=== PATIENT | female | born 1990 | race Caucasian/White ===

== ENCOUNTER 2018-06-06 14:49 | Outpatient (CLI) | payer OTHER ==
--- NOTE | 2018-06-06 16:41 | Ultrasound Report ---
Reason: TEST POSITIVE Procedure Date: 06/06/2018 Accession Number: [id number] / [id number] Procedure: US - OB First Trimester CPT Code: FULL RESULT: EXAM: FIRST TRIMESTER OBSTETRIC ULTRASOUND (Less than 11 weeks) EXAM DATE: 06/06/2018 04:01 PM. CLINICAL HISTORY: TEST POSITIVE. CONCERN FOR MISCARRIAGE. LMP: 04/23/2018. COMPARISONS: None. TECHNIQUE: Transabdominal and transvaginal ultrasound examination with static image documentation. CLINICAL DATES: EGA 6 weeks 2 days with MIGUEL 01/28/2019 based on LMP. ASSESSMENT: Gestational Sac: None visualized. Embryo: None visualized. Cardiac activity: None visualized. MATERNAL STRUCTURES: Uterus: Anteverted. Unremarkable. Cervix: Closed. Right Ovary/Adnexa: The ovary measures 3.9 x 1.2 x 2.0 cm, volume 4.7 cc. Unremarkable. Left Ovary/Adnexa: The ovary measures 1.8 x 2.7 x 1.3 cm, volume 3.3 cc. Unremarkable. Free Fluid: Trace amount, likely physiologic. Other: None. IMPRESSION: Normal pelvic ultrasound. of unknown location. RADIA The call report notification system was initiated by Dr. Manas Isidro at 16:34 hrs on 06/06/18. The above findings were discussed with JUVENCIO Ayala by Dr. Manas Isidro at 16:39 hrs on 06/06/18.
== END 2018-06-06 14:50 | disposition home or self-care (01) ==
LOC: DI 14:49
PROVIDERS: ATTEND Nurse Practitioner Obstetrics & Gynecology
DX: Z32.01 Encounter for pregnancy test, result positive (principal); O03.9 Complete or unspecified spontaneous abortion without complication
CPT/HCPCS: 36415; 76801; 76817; 84702

== ENCOUNTER 2018-06-08 10:31 | Outpatient (CLI) | payer OTHER | END 2018-06-08 10:32 | disposition home or self-care (01) | LOC: LAB 10:31 | PROVIDERS: ATTEND Nurse Practitioner Obstetrics & Gynecology | DX: O03.9 Complete or unspecified spontaneous abortion without complication (principal) | CPT/HCPCS: 36415; 84702 ==

== ENCOUNTER 2018-11-26 11:59 | Outpatient (CLI) | payer SELFPAY ==
--- NOTE | 2018-11-27 07:24 | Ultrasound Report ---
Reason: TEST POSITIVE Procedure Date: 11/26/2018 Accession Number: [id number] / [id number] Procedure: US - OB First Trimester CPT Code: FULL RESULT: EXAM: FIRST TRIMESTER OBSTETRIC ULTRASOUND (Less than 11 weeks) EXAM DATE: 11/26/2018 12:51 PM. CLINICAL HISTORY: TEST POSITIVE. LMP: 09/12/2018. COMPARISONS: OB FIRST TRIMESTER 06/06/2018 2:56 PM. TECHNIQUE: Transabdominal and transvaginal ultrasound examination with static image documentation. CLINICAL DATES: EGA 10 weeks 5 days with MIGUEL 06/19/2019 based on LMP . ASSESSMENT: Gestational Sac: Single intrauterine. Mean gestational sac diameter: 40.4 mm = 9 weeks 2 days. Embryo: CRL (crown-rump length) 34.2 mm = 10 weeks 0 days. Cardiac activity: 176 beats per minute. Yolk sac: 5 mm. Amniotic fluid: Not accurately assessed at this gestational age. Early placenta: Not visible at this gestational age. Other: No perigestational fluid collection demonstrated. MATERNAL STRUCTURES: Uterus: Anteverted. Unremarkable. Cervix: Closed. Right Ovary/Adnexa: The ovary measures 2.3 x 1.7 x 1.4 cm, volume 2.8 cc. Unremarkable. Left Ovary/Adnexa: The ovary measures 2.9 x 1.9 x 2.7 cm, volume 7.7 cc. Unremarkable. Free Fluid: None. Other: None. IMPRESSION: 1. Single viable intrauterine at EGA 10 weeks 0 days with MIGUEL 12 based on crown-rump length, which is concordant with clinical dates. RADIA
== END 2018-11-26 12:00 | disposition home or self-care (01) ==
LOC: DI 11:59
PROVIDERS: ATTEND Registered Nurse
DX: Z32.01 Encounter for pregnancy test, result positive (principal)
CPT/HCPCS: 76801

== ENCOUNTER 2018-12-05 08:00 | Outpatient (CLI) | payer OTHER ==
[2018-12-05 16:49] LABS: MUDS CUTOFF CONCENTRATIONS CUTOFF CONC BELOW:
[2018-12-05 17:52] LABS: AMPHETAMINE SCREEN,URINE NEGATIVE (NEGATIVE); BENZODIAZEPINES SCREEN, URINE NEGATIVE (NEGATIVE); COCAINE SCREEN URINE NEGATIVE (NEGATIVE); METHADONE SCREEN, URINE NEGATIVE (NEGATIVE); METHAMPHETAMINES SCREEN, URINE NEGATIVE (NEGATIVE); OPIATE SCREEN, URINE NEGATIVE (NEGATIVE); OXYCODONE SCREEN, URINE NEGATIVE (NEGATIVE); PROPOXYPHENE SCREEN, URINE NEGATIVE (NEGATIVE); TRICYCLIC ANTIDEPRESSANT,URINE NEGATIVE (NEGATIVE)
== END 2018-12-05 23:59 | disposition home or self-care (01) ==
LOC: LAB.R 08:00
PROVIDERS: ATTEND Nurse Practitioner Obstetrics & Gynecology
DX: Z36.89 Encounter for other specified antenatal screening (principal)
CPT/HCPCS: 80306; 87086

== ENCOUNTER 2018-12-05 11:48 | Outpatient (CLI) | payer OTHER ==
[2018-12-05 13:00] LABS: BASOPHILS % (AUTO) 0.7 %; EOSINOPHILS # (AUTO) 0.1 10^3/uL (0.0-0.7); EOSINOPHILS % (AUTO) 1.7 %; HGB - HEMOGLOBIN 12.8 g/dL (12.0-16.0); LYMPHOCYTES # (AUTO) 2.3 10^3/uL (1.5-3.5); MEAN CORPUSCULAR HEMOGLOBIN 28.8 pg (27.0-31.0); MEAN CORPUSCULAR HGB CONC 33.3 g/dL (32.0-36.0); MEAN CORPUSCULAR VOLUME 86.5 fL (81.0-99.0); MEAN PLATELET VOLUME 7.6 fL (7.9-10.8); MONOCYTES # (AUTO) 0.6 10^3/uL (0.0-1.0); MONOCYTES % (AUTO) 8.5 %; NEUTROPHILS # (AUTO) 3.7 10^3/uL (1.5-6.6); NEUTROPHILS % (AUTO) 55.1 %; PLT - PLATELET COUNT 267 10^3/uL (130-450); RED BLOOD COUNT 4.44 10^6/uL (4.20-5.40); RED CELL DISTRIBUTION WIDTH 13.4 % (12.0-15.0); WHITE BLOOD COUNT 6.7 x10^3/uL (4.8-10.8)
[2018-12-06 13:06] LABS: HIV AG/AB 4TH GEN NON-REACTIVE (NON-REACTIVE)
[2018-12-06 13:31] LABS: HEPATITIS C ANTIBODY NON-REACTIVE (NON-REACTIVE)
[2018-12-06 13:33] LABS: HEPATITIS B SURFACE ANTIGEN NON-REACTIVE (NON-REACTIVE)
== END 2018-12-05 11:49 | disposition home or self-care (01) ==
LOC: LAB 11:48
PROVIDERS: ATTEND Nurse Practitioner Obstetrics & Gynecology
DX: Z36.89 Encounter for other specified antenatal screening (principal)
CPT/HCPCS: 36415; 80306; 81599; 85025; 86592; 86762; 86803; 86850; 86900; 86901; 87086; 87340; 87389

== ENCOUNTER 2018-12-19 11:01 | Emergency (ER) | payer OTHER ==
[2018-12-19 11:07] VITALS: BP 127/78
--- NOTE | 2018-12-19 11:20 | ED Physician Documentation ---
PD HPI URI - Stated complaint Stated Complaint: SY/THROAT PX/14 WKS SENT BY OB - Chief complaint Chief Complaint: Heent - History obtained from History obtained from: Patient - History of Present Illness Timing - onset: How many days ago (3-4) Timing duration: Days (3-4) Timing details: Gradual onset Associated symptoms: Fever (low grade), Sinus pain (frontal and maxillary). No: Swollen nodes, Dry cough Worsened by: Position (frontal headache worse with leaning over.) Recently seen: Not recently seen. No: Clinic (she tried to make appt with her PCP, but they would not give appt due to symptoms of fever and headache and told her she "had to go to the ER to rule out meningitis".) Review of Systems Constitutional: reports: Fever Nose: reports: Congestion, Sinus pressure / pain. denies: Rhinorrhea / runny nose Throat: reports: Sore throat. denies: Swollen tonsils Respiratory: denies: Cough Skin: denies: Rash Neurologic: reports: Headache (frontal sinus area). denies: Altered mental status PD PAST MEDICAL HISTORY - Past Medical History Past Medical History: No Respiratory: None Endocrine/Autoimmune: None - Past Surgical History Past Surgical History: No - Present Medications Home Medications: Ambulatory Orders Medication Instructions Recorded Confirmed Cephalexin [Keflex] 500 mg PO Q6H #28 capsule 12/19/18 dexAMETHasone [Decadron] 4 mg PO DAILY #5 tablet 12/19/18 - Allergies Allergies/Adverse Reactions: Allergies Allergy/AdvReac Type Severity Reaction Status Date / Time No Known Drug Allergies Allergy Verified 12/19/18 11:07 - Social History Does the pt smoke?: No Smoking Status: Never smoker Does the pt drink ETOH?: No - Immunizations Immunizations are current?: Yes PD ED PE NORMAL - Vitals Vital signs reviewed: Yes - General General: Alert and oriented X 3, No acute distress, Well developed/nourished - HEENT HEENT: Ears normal, Moist mucous membranes, Pharynx benign, Other (frontal sinus area tender to percussion. ) - Neck Neck: Supple, no meningeal sign, Other (some anterior neck tenderness with mild adenopathy.) - Cardiac Cardiac: RRR, No murmur - Respiratory Respiratory: Clear bilaterally - Derm Derm: Normal color, Warm and dry - Neuro Neuro: Alert and oriented X 3, No motor deficit, Normal speech Results - Vitals Vitals: Vital Signs - 24 hr 12/19/18 11:04 Temperature 36.6 C Heart Rate 108 H Respiratory 16 Rate Blood Pressure 127/78 O2 Saturation 99 PD MEDICAL DECISION MAKING - ED course Complexity details: considered differential (clinically much too well looking to be concerned about meningitis/ sepsis. Will err on bacterial side treatment, given symptoms seeming bacterial. ), d/w patient Departure - Departure Disposition: 01 Home, Self Care Clinical Impression: Acute sinusitis Qualifiers: Sinusitis location: frontal Recurrence: non-recurrent Qualified Code(s): J01.10 - Acute frontal sinusitis, unspecified Condition: Stable Record reviewed to determine appropriate education?: Yes Instructions: ED Sinusitis Abx Tx Prescriptions: Cephalexin [Keflex] 500 mg PO Q6H #28 capsule dexAMETHasone [Decadron] 4 mg PO DAILY #5 tablet Comments: Stay well-hydrated. Use some saline nasal spray a few times a day to help clear the nasal passages and promote sinus drainage. You can use Tylenol as needed for fevers and pains. Decadron steroid anti-inflammatory daily for 5 days. Cephalexin antibiotic as directed for a week. It sounds like likely to be a sinus bacterial infection. You do not look sick enough to warrant further testing at this point. Recheck if not improved over the next several days. Discharge Date/Time: 12/19/18 12:08
[2018-12-19] MEDS ORDERED: cephALEXin 250 MG CAPSULE PO STA (11:41)
[2018-12-19] MEDS ORDERED: CHERRY SYRUP 10 ML UDC PO ONE (11:41)
[2018-12-19] MEDS ORDERED: DEXAMETHASONE 10 MG/ML VIAL PO STA (11:41)
== END 2018-12-19 12:08 | disposition home or self-care (01) ==
LOC: ED 11:01
DX: J01.10 Acute frontal sinusitis, unspecified (principal)
CPT/HCPCS: 99283; A9270

== ENCOUNTER 2019-03-20 11:44 | Outpatient (CLI) | payer OTHER ==
[2019-03-20 13:34] LABS: HGB - HEMOGLOBIN 10.9 g/dL (12.0-16.0); MEAN CORPUSCULAR HEMOGLOBIN 29.2 pg (27.0-31.0); MEAN CORPUSCULAR HGB CONC 32.8 g/dL (32.0-36.0); MEAN PLATELET VOLUME 9.8 fL (7.9-10.8); RED BLOOD COUNT 3.73 10^6/uL (4.20-5.40); RED CELL DISTRIBUTION WIDTH 13.3 % (12.0-15.0); WHITE BLOOD COUNT 8.6 x10^3/uL (4.8-10.8)
--- NOTE | 2019-03-20 15:55 | Ultrasound Report ---
Reason: SCREENING Procedure Date: 03/20/2019 Accession Number: [id number] / [id number] Procedure: US - OB F/U or Repeat CPT Code: FULL RESULT: EXAM: FOLLOW-UP OBSTETRICAL ULTRASOUND EXAM DATE: 03/20/2019 12:54 PM. CLINICAL HISTORY: Follow-up limited anatomic survey. COMPARISON: 01/30/2019 TECHNIQUE: Real-time sonographic evaluation of the fetus performed by the signal constructor. Multiple manufacturer representative static images were saved for review. DATING: Established EGA 27 weeks 0 days with MIGUEL 06/19/2019 based on LMP. EGA 27 weeks 5 days with MIGUEL 06/14/2019 based on prior ultrasound of 11/26/2018. EGA 26 weeks 5 days with MIGUEL 06/21/2019 based on the current ultrasound. GENERAL EVALUATION Akins . Cardiac activity: 139 bpm. movement: Present Presentation: Vertex Placenta: Posterior with fundal wrap position. Amniotic fluid: Normal. GIULIANO 16.2 cm. MVP 6.5 cm. BIOMETRY Bi-Parietal Diameter (BPD): 6.5 cm, 26 weeks 2 days Head Circumference (HC): 24.4 cm, 26 weeks 3 days Abdominal Circumference (AC): 23.8 cm, 28 weeks 1 day Femur Length (FL): 4.8 cm, 26 weeks 0 days Estimated Weight: 1026 g. ANATOMY profile and nasal bone well seen today and appear normal. MATERNAL STRUCTURES Cervix long and closed 4.6 cm. IMPRESSION: 1. Akins intrauterine with gestational age 27 weeks 0 days based on LMP. 2. Estimated weight is within expected limits for assigned dating. 3. Normal interval growth compared to 11/26/2018. 4. profile and nasal bone well seen today and no anomalies are identified. RADIA
== END 2019-03-20 11:45 | disposition home or self-care (01) ==
LOC: DI 11:44
PROVIDERS: ATTEND Nurse Practitioner Obstetrics & Gynecology
DX: Z36.89 Encounter for other specified antenatal screening (principal)
CPT/HCPCS: 36415; 76816; 82950; 85027; 86850

== ENCOUNTER 2019-06-18 19:22 | Inpatient (IN) | payer OTHER ==
[2019-06-18] MEDS ORDERED: ONDANSETRON 4 MG/2 ML VIAL IVP PRN (20:00)
[2019-06-18] MEDS ORDERED: SODIUM CHLORIDE FLUSH 0.9% 10 ML SYRINGE IVP PRN (20:00)
[2019-06-18 21:21] LABS: BASOPHILS % (AUTO) 0.4 %; EOSINOPHILS # (AUTO) 0.2 10^3/uL (0.0-0.7); EOSINOPHILS % (AUTO) 2.1 %; HGB - HEMOGLOBIN 10.9 g/dL (12.0-16.0); LYMPHOCYTES # (AUTO) 2.4 10^3/uL (1.5-3.5); LYMPHOCYTES % (AUTO) 29.3 %; MEAN CORPUSCULAR HEMOGLOBIN 26.9 pg (27.0-31.0); MEAN CORPUSCULAR HGB CONC 31.6 g/dL (32.0-36.0); MEAN CORPUSCULAR VOLUME 85.2 fL (81.0-99.0); MEAN PLATELET VOLUME 11.2 fL (7.9-10.8); MONOCYTES # (AUTO) 0.7 10^3/uL (0.0-1.0); MONOCYTES % (AUTO) 8.8 %; NEUTROPHILS # (AUTO) 4.9 10^3/uL (1.5-6.6); PLT - PLATELET COUNT 244 10^3/uL (130-450); RED BLOOD COUNT 4.05 10^6/uL (4.20-5.40); RED CELL DISTRIBUTION WIDTH 15.1 % (12.0-15.0); WHITE BLOOD COUNT 8.3 x10^3/uL (4.8-10.8)
--- NOTE | 2019-06-18 21:37 | HISTORY & PHYSICAL EXAMINATION ---
Admit History - Visit Reason Visit Reason: Membranes rupture - : 3 Parity: 1 Premature: 0 Ectopic: 0 : 1 Care: positive: [facility] Risk/History: positive: None Complications This : positive: None Smoking Status: Never smoker - Mother's Labs Mother's Blood Type: positive: A Mother's RH: positive: Positive GBS: positive: Group B Step Negative Rubella Status: positive: Immune Meds/Allgy - Home Medications Home Medications: Ambulatory Orders Medication Instructions Recorded Confirmed Cephalexin [Keflex] 500 mg PO Q6H #28 capsule 12/19/18 dexAMETHasone [Decadron] 4 mg PO DAILY #5 tablet 12/19/18 - Allergies Allergies/Adverse Reactions: Allergies Allergy/AdvReac Type Severity Reaction Status Date / Time No Known Drug Allergies Allergy Verified 12/19/18 11:07 Physical - Abdominal Exam Vital Signs: Temp Pulse Resp BP Pulse Ox 36.6 C 100 18 130/81 H 100 06/18/19 19:45 06/18/19 19:45 06/18/19 19:45 06/18/19 19:45 06/18/19 19:45 Contraction Frequency (min/apart): 3-8 Contraction Intensity: positive: Moderate Uterine Resting Tone: positive: Soft - Monitoring Heart Rate Baseline: 140 Strip Review: positive: Category I - Presentation Presentation: positive: Vertex - Vaginal Exam Membranes: positive: Membranes ruptured Dilation (in cm): 2 Effacement (%): 75 Station: positive: -1 Cervical Position: positive: Posterior - Speculum Exam Speculum Exam Performed: positive: No Findings: positive: Gross leak Plan for Labor - Plan For Labor I expect patient to be DC'd or transferred within 96 hours.: Yes Plan for Labor: HPI: This 28yo @ 39.6wks gestation presents to [facility] with c/o gross rupture of membranes at approximately 1900 this evening (06/18/2019). She states the fluid was a large gush and clear. She reports +FM. She denies vaginal bleeding and states her contractions have continued to increase gradually in frequency and intensity since SROM. Cervix was noted to be 2/75/-1, posterior, soft and vertex. She has continued to leak clear amniotic fluid since her arrival. She has been a patient of [facility] through the duration of her which has been uncomplicated. She was admitted to [facility] for augmentation of labor. OB History: G1: 02/18/14 female @ 38.6wks gestation, epidural, [id number] G2: SAB 2018 @ 6wks G3: current Dating criteria: LMP 09/12/2018 Initial ultrasound @ 10.0wks c/w LMP dating Serial exams - agree PMHx: unremarkable Surgical Hx: none Social Hx: Never smoker, no ETOH or IVDA Family Hx: Breast cancer - MGM Medications: PNV Allergies: Keflex labs: RPR non-reactive HIV neg A positive, antibody neg Rubella immune HIV neg Hep B neg; Hep C neg UTOX neg GC/CT neg x 2 1 hour GTT 137 GBS Negative Genetic testing: pt declined Immunizations: Tdap 04/03/2019 Ultrasounds: Initial ultrasound @ 10.0wks gestation c/w LMP dating FAS: 01/30/2019 WNL with the exception of poor visualization of profile and nasal bone, 3VC. Posterior placenta, no previa. Size c/w dating. 03/20/2019 completion WNL. Physical Exam: Normocephalic, atraumatic PERRLA Heart RRR w/o M/G/R Lungs CTAB Abdomen gravid, soft, nontender EFW 3400g SVE 2/75/-1, vertex Contractions palpate moderate every 2-6 minutes with soft resting tone Bilateral LE's no edema Assessment: 28yo @ 39.6wks gestation by LMP c/w 10.0wk U/S SROM x 3 hours GBS neg FHR Category I Plan: Intermittent monitoring x 2 hours. Repeat SVE 4 hours after SROM. If SVE unchanged, will give 50mcg BC misoprostol for cervical ripening. If SVE changed consider pitocin for augmentation with ti tration per protocol vs expectant management. Anticipate .
[2019-06-18] MEDS: miSOPROStoL 100 MCG TABLET BC SCH (21:41)
[2019-06-18] MEDS ORDERED: OXYTOCIN/DEXTROSE 5 % 30 UNIT/500 ML BAG IV SCH (23:45)
[2019-06-19] MEDS: LACTATED RINGERS 1,000 ML IV SCH ×4 (00:04→17:02)
[2019-06-19] MEDS ORDERED: fentaNYL 100 MCG/2 ML VIAL ONE (00:15)
[2019-06-19] MEDS ORDERED: ROPIVACAINE 0.2% 200 MG/100 ML BAG EP ONE (00:15)
[2019-06-19] MEDS ORDERED: ROPIVACAINE 0.2% PF 20 ML AMPULE ONE (00:15)
[2019-06-19] MEDS ORDERED: ePHEDrine 50 MG/ML VIAL IVP PRN (00:52)
[2019-06-19] MEDS ORDERED: ONDANSETRON 4 MG/2 ML VIAL IVP PRN (00:52)
[2019-06-19] MEDS ORDERED: diphenhydrAMINE INJ 50 MG/ML VIAL IVP PRN (00:52)
[2019-06-19] MEDS ORDERED: ROPIVACAINE 0.2% 200 MG/100 ML BAG EP PRN (00:52)
[2019-06-19] MEDS ORDERED: NALOXONE 0.4 MG/ML VIAL IVP PRN (00:52)
[2019-06-19] MEDS ORDERED: NALBUPHINE 10 MG/ML AMP IVP PRN (00:52)
[2019-06-19] MEDS ORDERED: METOCLOPRAMIDE 10 MG/2 ML VIAL IVP PRN (00:52)
[2019-06-19] MEDS ORDERED: LACTATED RINGERS 500 ML IV ONE (00:52)
--- NOTE | 2019-06-19 00:56 | ANESTHESIA ---
Pre-Anesthesia VS, & Labs - Diagnosis term labor, IUP - Procedure epidural placement Vital Signs: Temp Pulse Resp BP Pulse Ox 36.6 C 100 18 130/81 H 100 06/18/19 19:45 06/18/19 19:45 06/18/19 19:45 06/18/19 19:45 06/18/19 19:45 Height 5 ft 3.5 in Weight (kg) 70.398 kg Body Mass Index 20.3 - NPO Last Fluid Intake: t/o day - Is Patient ?: Yes - Lab Results Current Lab Results: Laboratory Tests 06/18/19 21:00: WBC 8.3, RBC 4.05 L, Hgb 10.9 L, Hct 34.5 L, MCV 85.2, MCH 26.9 L, MCHC 31.6 L, RDW 15.1 H, Plt Count 244, MPV 11.2 H, Neut # (Auto) 4.9, Lymph # (Auto) 2.4, Meagher # (Auto) 0.7, Eos # (Auto) 0.2, Baso # (Auto) 0.0, Absolute Nucleated RBC 0.00, Nucleated RBC % 0.0 Lab results reviewed: Yes Fish Bones: 06/18/19 21:00 Home Medications and Allergies Active Medications Diphenhydramine HCl (Benadryl Inj) 12.5 - 25 mg IVP Q6HR PRN PRN Reason: ITCHING Ephedrine Sulfate () 5 mg IVP Q5M PRN PRN Reason: For SBP<100;give until SBP>100 Lactated Ringer's (Lr) 1,000 mls @ 150 mls/hr IV .Q6H40M PAUL Last Admin: 06/19/19 00:04 Dose: 999 mls/hr OXYTOCIN/DEXTROSE 5 % (Pitocin/Dextrose 5%) 30 unit in 500 mls @ 1 mls/hr IV TITR PAUL; Protocol Lactated Ringer's (Lr) 500 mls @ 999 mls/hr IV ONCE ONE Stop: 06/19/19 01:22 Ropivacaine (Naropin 0.2%) 200 mg in 100 mls @ 0 mls/hr EP PRN PRN; Protocol PRN Reason: PAIN Metoclopramide HCl (Reglan Inj) 10 mg IVP Q6HR PRN PRN Reason: Nausea / Vomiting Misoprostol (Cytotec) 50 mcg BC Q4H PENDING SALE TO [facility] Last Admin: 06/18/19 21:41 Dose: Not Given Nalbuphine HCl (Nubain) 2.5 - 5 mg IVP Q4H PRN PRN Reason: ITCHING Naloxone HCl (Narcan) 0.1 mg IVP Q2M PRN PRN Reason: RR<8 Ondansetron HCl (Zofran Inj) 4 mg IVP Q4H PRN PRN Reason: Nausea / Vomiting Ondansetron HCl (Zofran Inj) 4 mg IVP Q6HR PRN PRN Reason: Nausea / Vomiting Sodium Chloride (Normal Saline Flush 0.9%) 10 ml IVP PRN PRN PRN Reason: NEEDED PER PROVIDER ORDERS Sodium Chloride (Normal Saline Flush 0.9%) 10 ml IVP 0100,0900,1700 PENDING SALE TO [facility] Allergies/Adverse Reactions: Allergies Allergy/AdvReac Type Severity Reaction Status Date / Time No Known Drug Allergies Allergy Verified 12/19/18 11:07 Anes History & Medical History - Anesthetic History Anesthesia Complications: reports: No previous complications Family history of Anesthesia Complications: Denies Family history of Malignant Hyperthermia: Denies - Medical History Pulmonary: reports: None Endocrine/Autoimmune: reports: None Smoking Status: Never smoker - Obstetrical History : 3 Parity: 1 Events: positive: None Complications: positive: None Exam General: Alert, Oriented x3, Cooperative Dental: WNL Mouth Openin Fingerbreadth Neck Mobility: Normal Mallampati classification: II Thyromental Distance: greater than 6 cm Respiratory: No respiratory distress Cardiovascular: Regular rate Mental/Cognitive Status: Alert/Oriented X3, Normal for patient Cognitive Status: Within normal limits Plan Anesthesia Type: Epidural Consent for Procedure(s) Verified and Reviewed: Yes Code Status: Attempt Resuscitation ASA classification: 2-Mild systemic disease Is this case an emergency?: No
--- NOTE | 2019-06-19 01:41 | CONSULTATION NOTE ---
Consultation Report: Call for low BPx2 and patient with nausea. Sensory level appreciated at T8. Ephedrine 10mg IV and increase in fluid rate. Pt states symptoms resolved, denies pain.
--- NOTE | 2019-06-19 02:17 | PROVIDER PROGRESS NOTE ---
Labor Progress Note - Uterine Monitoring Uterine Monitoring Mode: positive: External toco Contraction Frequency (min/apart): 4-6 Contraction Intensity: positive: Moderate to strong Uterine Resting Tone: positive: Soft - Monitoring Monitor Mode: positive: External ultrasound Heart Rate Baseline: 120 Heart Rate Variability: positive: Moderate (6-25 bmp) Accelerations: positive: Present, 15x15 Decelerations: positive: Late, Intermittent (<50% x20 min) Strip Review: positive: Category II - Vaginal Exam Dilation (in cm): 5 Effacement (%): 100 Station: -1 Cervical Position: Midposition - Labor Progress Note Labor Progress Note/Additional Text: S: Patient laying slightly upright with a slight left tilt and O2 mask on. She is feeling comfortable with her epidural. is supportive at the bedside. O: FHR baseline 120s, moderate variability, + accels. Difficultly tracing FHR wi th concern for prolonged, late deceleration with onset approximately 0121. Pitocin was shut off, patient was rotated, fluid bolus initiated, and O2 mask applied. FHR seemed to recover followed by another likely late deceleration with onset approximately 0141. FSE applied at 0146. FHR baseline 125, moderate variability, + accels, no decels since that time. Pt has experienced repeated episodes of hypotension immediately following placement of epidural. BP 64/28. 2 doses of ephedrine given. A: 28yo @ 40wks gestation by LMP c/w 10wk U/S Active labor GBS neg FHR currently Category I - overall reassuring Hypotension improving with fluid bolus, position changes, and ephedrine administration P: Continuous monitoring Hold Pitocin for 2 hours and repeat SVE - consider pitocin initiation if SVE unchanged and FHR remains Category I Reviewed plan of care with pt, and labor RN who are all in agreement and deny further questions or concerns at this time. Anticipate .
--- NOTE | 2019-06-19 02:41 | PROVIDER PROGRESS NOTE ---
Labor Progress Note - Uterine Monitoring Uterine Monitoring Mode: positive: External toco Contraction Frequency (min/apart): 4 Contraction Intensity: positive: Moderate to strong Uterine Resting Tone: positive: Soft - Monitoring Monitor Mode: positive: External ultrasound Heart Rate Baseline: 150 Heart Rate Variability: positive: Moderate (6-25 bmp) Accelerations: positive: Present, 15x15 Decelerations: positive: None Strip Review: positive: Category I
--- NOTE | 2019-06-19 03:05 | PROVIDER PROGRESS NOTE ---
Labor Progress Note - Uterine Monitoring Uterine Monitoring Mode: positive: External toco Contraction Frequency (min/apart): 3-5 Contraction Intensity: positive: Moderate to strong Uterine Resting Tone: positive: Soft - Monitoring Monitor Mode: positive: Spiral electrode Heart Rate Baseline: 160 Heart Rate Variability: positive: Moderate (6-25 bmp) Accelerations: positive: Present, 15x15 Decelerations: positive: None Strip Review: positive: Category I - Vaginal Exam Dilation (in cm): 7 Effacement (%): 100 Station: 1 Cervical Position: Midposition - Labor Progress Note Labor Progress Note/Additional Text: S: Laying comfortably on right side. Feeling more movement in her lower legs and is able to feel her abdomen more than she had with initial epidural placement. supportive at the bedside. O: FHR baseline 160, minimal - moderate variability, + accels, no decels IUPC placed secondary to difficulty tracing contractions. Contractions palpate strong every 3-5 minutes with soft resting tone. SVE 7/100/+1 A: 28yo @ 40.0wks gestation by LMP c/w 10.0wk U/S FHR Category I with intermittent periods of Category II - overall reassuring Active labor GBS neg P: Continuous monitoring Continue expectant management Continue to rotate in bed on peanut ball a minimum of q 1 hr Anticipate .
--- NOTE | 2019-06-19 06:31 | PROVIDER PROGRESS NOTE ---
Labor Progress Note - Uterine Monitoring Uterine Monitoring Mode: positive: External toco Contraction Frequency (min/apart): 3 Contraction Intensity: positive: Strong Uterine Resting Tone: positive: Soft - Monitoring Monitor Mode: positive: External ultrasound Heart Rate Baseline: 150 Heart Rate Variability: positive: Moderate (6-25 bmp) Accelerations: positive: Present, 15x15 Decelerations: positive: None Strip Review: positive: Category I - Vaginal Exam Dilation (in cm): 9 Effacement (%): 100 Station: 1 Cervical Position: Anterior - Labor Progress Note Labor Progress Note/Additional Text: S: Sitting in high fowlers position in bed and feeling more discomfort with contractions. supportive at the bedside. O: FHR basleine 150s, moderate variability, + accels, no decels SVE 9/100/+1 with more cervix noted to right anterior lip of cervix. Attempted pushing while holding back anterior lip without success. Pt repositioned to exaggerated right side lying position to continue to labor. Contractions palpate firm every 3 minutes with soft resting tone A: 28yo @ 40.0wks gestation by LMP c/w 10.0wk U/S Active labor FHR Category I GBS neg P: Reposition and continue to labor/expectant management. Repeat SVE in 1 hour or sooner PRN. Anticipate
[2019-06-19] MEDS: OXYTOCIN/DEXTROSE 5 % 30 UNIT/500 ML BAG IV PRN ×2 (08:47→10:20)
[2019-06-19] MEDS ORDERED: HYDROCORTISONE 1% CREAM 28 GM TUBE PR PRN (09:05)
[2019-06-19] MEDS ORDERED: WITCH HAZEL/GLYCERIN 1 PAD TOP PRN (09:05)
--- NOTE | 2019-06-19 09:05 | DELIVERY NOTE ---
Delivery Note - Labor Labor: positive: Spontaneous - Delivery Method Delivery Method: positive: Spontaneous vaginal delivery - Presentation Presentation: positive: Vertex, FRANK - right occiput anterior - Nuchal Cord Nuchal Cord: positive: None - Episiotomy Type Episiotomy Type: positive: None - Laceration Laceration: positive: None - : positive: Placed in direct skin contact with mother, Stimulated, Warmed [place] sex: positive: Male - Cord Cord: positive: 3 vessels - Placenta Placenta: positive: Intact, Spontaneous - Estimated Blood Loss Estimated Blood Loss (in cc): 200 - Post Delivery Events Post Delivery Events: positive: No post delivery events - Delivery Comments (Free Text/Narrative) Delivery Comments (Free Text/Narrative): Labor: This 28yo @ 40.0wks gestation by LMP c/w 10.0wk U/S presented on 06/18/2019 with SROM which was noted to be a moderate amount of clear fluid. Upon arrival cervix was 2/75/0, vertex. FHR pattern demonstrated Category I with intermittent periods of Category II - overall reassuring. Epidural placed per maternal request. Pitocin administered via IV @ 1 for less than 30 minutes at which time it was shut off due to late deceleration and hypotension with epidural placement. Normal labor course. The patient progressed to c/c/+2 at 0818. : Normal of viable male on 06/19/2019 @ 0847. No nuchal cord. The was stimulated, dried, and placed skin to skin. 's were 9/9 at 1 and 5 min respectively. The umbilical cord was allowed to stop pulsating at which time it was doubly clamped by CNM and cut by FOB. Pitocin administered via IV for hemostasis. Cord blood was obtained. Placenta delivered spontaneously and intact at 0851. 3VC. EBL 200mL. Fourth stage: Uterine fundus firm and there is no excessive bleeding. The perineum, vagina, and cervix were inspected and found to be intact. Skin to skin initiated. Family bonding well. Both mother and baby were left in stable condition.
[2019-06-19] MEDS: miSOPROStoL 100 MCG TABLET BC SCH ×3 (09:20→17:01)
[2019-06-19] MEDS: SODIUM CHLORIDE FLUSH 0.9% 10 ML SYRINGE IVP SCH ×2 (09:21→17:02)
[2019-06-19] MEDS: IBUPROFEN 800 MG TABLET PO SCH ×3 (09:37→22:45)
[2019-06-19] MEDS: ACETAMINOPHEN 500 MG TABLET PO SCH ×2 (09:37→18:06)
[2019-06-19] MEDS: CALCIUM CARBONATE CHEW 500 MG TABLET PO SCH ×2 (09:38→12:13)
[2019-06-19] MEDS: DOCUSATE SODIUM 100 MG CAPSULE PO SCH (22:46)
[2019-06-20] MEDS: ACETAMINOPHEN 500 MG TABLET PO SCH ×2 (01:59→10:17)
[2019-06-20] MEDS: IBUPROFEN 800 MG TABLET PO SCH ×2 (04:40→10:17)
[2019-06-20] MEDS: LACTATED RINGERS 1,000 ML IV SCH (07:50)
[2019-06-20] MEDS: CALCIUM CARBONATE CHEW 500 MG TABLET PO SCH (07:51)
[2019-06-20] MEDS: SODIUM CHLORIDE FLUSH 0.9% 10 ML SYRINGE IVP SCH (07:51)
--- NOTE | 2019-06-20 09:18 | Discharge Plan ---
Discharge Plan Problem Reviewed?: Yes Disposition: Home, Self Care Condition: Good Diet: Regular Activity Restrictions: No Restrictions Shower Restrictions: No Weight Bearing: Full Weight No Smoking: If you smoke, Please STOP! Call for help. Follow-up with: Marian Judge CNM, ARNP [Provider Admit Priv/Credential] -
--- NOTE | 2019-06-20 09:20 | PROVIDER PROGRESS NOTE ---
Subjective - Subjective Subjective: FINAL PROGRESS NOTE: S: Bonding well with baby. without difficulty. pain well controlled with oral medications. Bleeding decreased and is light. Excited to be able to go home today. supportive at the bedside. O: Heart RRR w/o M/G/R, lungs CTAB, abdomen soft and nontender with fundus firm at U-1, bilateral LE's no edema. A: 28yo -->P2 PPD#1 s/p TSVD of viable male infant P: Reviewed pp self care and warning s/sx and when to present Advised continuation of PNV while Advised OTC ibuprofen and tylenol for pain management PRN Return in 3 weeks for routine pp visit or sooner PRN. Pt and verbalized understanding and agree to above plan. They deny further questions or concerns at this time. Objective - Vital Signs/Intake & Output Vital Signs: Vital Signs x48h Temp Pulse Resp BP Pulse Ox 06/20/19 04:43 36.6 C 76 20 107/68 99 Intake & Output: Intake & Output 06/17/19 06/18/19 06/19/19 06/20/19 23:59 23:59 23:59 23:59 Intake Total 1931.000 Output Total 1600 Balance 331.000 - Lab Results Fish Bones: 06/18/19 21:00
[2019-06-20 09:31] VITALS: BP 108/61
--- NOTE | 2019-06-20 09:40 | DISCHARGE SUMMARY ---
Physician: MUNA Escalona DATE OF ADMISSION: 06/18/2019 DATE OF DISCHARGE: 06/20/2019 DIAGNOSES ON ADMISSION 1. A 28-year-old G3, P1-0-1-1 at 39.6 weeks gestation. 2. Spontaneous rupture of membranes. 3. Group B Streptococcus negative. DIAGNOSES ON DISCHARGE 1. A 28-year-old G2, P2-0-1-2 status post spontaneous vaginal delivery on 06/19/2019. 2. . 3. Normal recovery. HISTORY OF PRESENT ILLNESS: She is a patient of [facility] who presented on with complaints of spontaneous rupture of membranes, which was noted to be a moderate amount of c lear fluid. Cervix was 2 cm dilated, 75% effaced, 0 station, vertex position. She progressed to spo ntaneously deliver a viable male named Gold. Apgars were 9 and 9 at 1 and 5 minutes respectiv lay. The patient was noted to have an intact perineum. She has been doing well in her course. She is ambulating and tolerating a regular diet. She is urinating without difficulty and her lochia is normal. Her pain is well controlled with oral medications. She will be discharged home today on day #1 with instructions to continue he r vitamin while , and to take ibuprofen and Tylenol [id number] as needed for pain management. She intends to follow up with myself at [facility] in 3 weeks for routine visit. She has been given precautions to call if she has any worsening fevers , chills, abdominal pain, increased bleeding or foul-smelling vaginal lochia. TD: 06/20/2019 09:26
[2019-06-20] MEDS: DOCUSATE SODIUM 100 MG CAPSULE PO SCH (10:17)
--- NOTE | 2019-06-20 10:31 | Labor Flowsheet ---
Labor Flowsheet Datetime Report Generated by CPN: 06/20/2019 10:30 Datetime: 06/20/2019 09:28 VITAL SIGNS NBP Sys/Jocelin/Mean (mmHg): 108 : 61 : 73 Pulse: 91 LaborFlag: Labor Datetime: 06/19/2019 10:49 SpO2 (%): 98 Datetime: 06/19/2019 09:00 Temperature (C): 36.9 Datetime: 06/19/2019 08:47 MEDICATIONS Pitocin (milliunits): Started @ 999 Datetime: 06/19/2019 08:40 UTERINE ACTIVITY Monitor Mode: External Frequency (min): 2 Quality: Strong Duration (sec): 60-90 Pattern: Normal: <= 5 Contractions in 10 Minutes Resting Tone (Palpate): Relaxed ASSESSMENT A Monitor Mode: Internal Scalp Electrode FHR Baseline Rate : 130 Variability: Minimal - Undetectable to <=5 bpm Accelerations: None Decelerations: Variable Category: Category II Comments: scalp stim by provider PATIENT CARE Oxygen Method: Room Air STAGE 2 Pushing: Urge to Push Pushing Position: Pushing with Contractions Pushing Progress: Descent with Pushing; Perineal Bulging; Rectal Bulging; Caput Noted; Presenting P art Visible Datetime: 06/19/2019 08:30 I/O Interventions: Ice Chips Given Datetime: 06/19/2019 08:23 Patient Care Comments: provider straight cath Datetime: 06/19/2019 08:18 VAGINAL EXAM Dilatation (cm): 10.0 Effacement (%): 100 Station: 2 Exam by: A.Alfie CNM Datetime: 06/19/2019 08:15 Provider Notified (Name): A Alfie at bedside Datetime: 06/19/2019 08:02 Patient Position/Activity: Left Tilt; Semi-Fowlers Datetime: 06/19/2019 07:30 Respirations: 20 Temperature Route: Oral PAIN Pain Scale: 7 Pain Presence: Intermittent Pain Type: Contraction Pain Location: Abdomen; Back; Left Hip Pain Relief Measures: FURNACE KEEPER Use Pain Coping: Talking Through Contractions Datetime: 06/19/2019 06:30 Monitor Interventions for UA: [place] Adjusted Datetime: 06/19/2019 06:10 Contraction Comments: IUPC removed Datetime: 06/19/2019 06:08 Communication Comments: Marian Alfie at bedside Datetime: 06/19/2019 06:00 Notification Reason: Status Update Datetime: 06/19/2019 04:38 Pain Assessment Comments: pt denies any increased pain Datetime: 06/19/2019 04:37 Vaginal Bleeding: Normal Show Datetime: 06/19/2019 03:30 FHR Baseline Changes: Tachycardia Datetime: 06/19/2019 01:46 Monitor Interventions for FHR: FSE Applied Datetime: 06/19/2019 01:32 Vaginal Exam Comments: unchanged Datetime: 06/19/2019 01:30 MATERNAL ASSESSMENT Nausea/Vomiting: Present Magnesium/Antihypertensives: Ephedrine IV (mg) @ 10 Datetime: 06/19/2019 01:29 COMMUNICATION Communication: Call/Page Placed to Provider Datetime: 06/19/2019 01:03 Pitocin Checklist: At Least 1 Acceleration of 15 bpm x 15 Seconds in 30 Minutes or Adequate Variabi lity; No More than 1 Late Deceleration Occurred in Past 30 Minutes; No More than 2 Variable Decelerat ions > 60 Seconds in Duration and decreasing >60 bpm in 30 minutes; No More than 5 Uterine Contractio ns in 10 Minutes for any 20 Minute Interval; Uterus Palpates Soft between Contractions Datetime: 06/19/2019 01:00 Anesthesia Level Check: T4- Nipple Line Anesthesia Comments: Anesthesia provider aware of anesthesia level Datetime: 06/19/2019 00:47 Medication Comments: anesthesia Anesthesia Interventions Other: Ephedrine Datetime: 06/19/2019 00:39 Epidural Procedure: Loading Dose Datetime: 06/19/2019 00:27 Membranes Ruptured Date/Time: 06/19/2019 18:30 Membranes Rupture Method: Spontaneous Amniotic Fluid Color: Clear Amniotic Fluid Amount: Small Amniotic Fluid Odor: Normal Datetime: 06/19/2019 00:25 PROCEDURE TIME OUT Procedure Verify: Agreement on Procedure to be Done; Correct Patient Position Epidural Positioning: Sitting Datetime: 06/19/2019 00:22 ANESTHESIA Anesthesia Plans: Epidural Datetime: 06/18/2019 23:52 TEACHING Instructional Method: Verbal Plan of Care: Plan of Care Discussed Teaching Comments: Discussed provider plan for augmentation of labor with Pitocin. Patient desires epidural placement prior to initiation of pitocin. Datetime: 06/18/2019 20:25 Stage of : Labor
== END 2019-06-20 10:30 | disposition home or self-care (01) | DRG 807 ==
LOC: WFO 19:22 → FBP 19:24 → WFO 20:01 → FBP 20:01
PROVIDERS: ADMIT Nurse Practitioner Obstetrics & Gynecology; ATTEND Nurse Practitioner Obstetrics & Gynecology
PROC: 10E0XZZ Delivery of Products of Conception, External Approach (ICD-10-PCS; principal; 2019-06-18)
DX: O42.02 Full-term premature rupture of membranes, onset of labor within 24 hours of rupture (principal); Z37.0 Single live birth; O76 Abnormality in fetal heart rate and rhythm complicating labor and delivery; O75.89 Other specified complications of labor and delivery; R03.1 Nonspecific low blood-pressure reading; Z3A.40 40 weeks gestation of pregnancy
CPT/HCPCS: 85025; A9270; J7120; 99213

== ENCOUNTER 2023-06-07 10:30 | Outpatient (CLI) | payer OTHER ==
--- NOTE | 2023-06-07 17:32 | XRAY Report ---
PROCEDURE: Wrist 4 View LT INDICATIONS: PAIN IN LEFT WRIST TECHNIQUE: 4 views of the wrist were acquired. COMPARISON: None. FINDINGS: Bones: No fractures or dislocations. No suspicious bony lesions. Soft tissues: No suspicious soft tissue calcifications or masses. IMPRESSION: No acute bony abnormality. Reviewed by: Khai Burgess MD on 06/07/2023 5:31 PM [facility] Approved by: Khai Burgess MD on 06/07/2023 5:31 PM PST Station ID: [id number]
== END 2023-06-07 10:45 | disposition home or self-care (01) ==
LOC: DI.N 10:30
PROVIDERS: ATTEND Specialist
DX: M25.532 Pain in left wrist (principal)

== ENCOUNTER 2023-07-06 17:14 | Emergency (ER) | payer OTHER ==
[2023-07-06 17:36] VITALS: BP 105/65; O2SAT 98
[2023-07-06] MEDS ORDERED: BACITRACIN ZINC OINT 1 PACKET TOP STA (19:15)
--- NOTE | 2023-07-06 19:19 | ED Physician Documentation ---
PD HPI UPPER EXT INJURY - Stated complaint Stated Complaint: R HAND LAC - Chief complaint Chief Complaint: Laceration - History obtained from History obtained from: Patient - Additonal information Additional information: The patient comes to the ED with chief complaint of right palmar laceration while washing a knife. She states it happened just before she came here. She is right-hand dominant. No difficulty moving Her fingers since. No other complaints at this time. PD PAST MEDICAL HISTORY - Past Medical History Past Medical History: No Respiratory: None Endocrine/Autoimmune: None - Past Surgical History Past Surgical History: No - Present Medications Home Medications: Ambulatory Orders Medication Instructions Recorded Confirmed No Known Home Medications 07/06/23 07/06/23 - Allergies Allergies/Adverse Reactions: Allergies Allergy/AdvReac Type Severity Reaction Status Date / Time cephalexin [From Keflex] Allergy Rash Verified 07/06/23 17:27 - Social History Does the pt smoke?: No Smoking Status: Never smoker Does the pt drink ETOH?: No Does the pt have substance abuse?: No - Immunizations Immunizations are current?: Yes PD ED PE NORMAL - Vitals Vital signs reviewed: Yes - General General: Alert and oriented X 3, No acute distress, Well developed/nourished - HEENT HEENT: Atraumatic, PERRL, EOMI, Moist mucous membranes - Neck Neck: Supple, no meningeal sign - Derm Derm: Warm and dry, Other (2.75 cm linear laceration R palm. Superficial, just into subcutaneous fat.) - Extremities Extremities: No deformity - Neuro Neuro: Alert and oriented X 3 - Psych Psych: Normal mood, Normal affect Results - Vitals Vitals: Oxygen O2 Source Room air Procedures - Laceration (location) R palm Length in cm: 2.7 Wound type: Linear, Into subcut fat, Clean Neurovascular status: Sensory intact, Motor intact, Vascular intact Anesthesia: Lidocaine 1% Wound preparation: Hibiclens, Irrigated copiously NS, Wound explored, To the base Skin layer closure: Nylon, Interrupted, Size #-0 - enter number (5.0), Sutures - enter # (6) Other: Patient tolerated well, No complications, Neurovascular intact, Dressing applied, Tetanus UTD PD Medical Decision Making - ED course Complexity details: considered differential, d/w patient ED course: Wound repaired as above, and Bacitracin applied. Wound care discussed, as were timeline for suture removal and signs of infection. Departure - Departure Disposition: 01 Home, Self Care Clinical Impression: Laceration Condition: Stable Instructions: ED Laceration All Comments: Your laceration has been repaired with 6 synthetic sutures this evening. They should be left in for 7 days and removed at that time by medical profession if the wound is deemed ready. You may allow water and soap to run over the wound and should keep the wound generally clean and otherwise dry. Please do not rub, scrub, or immerse the wound. This is to prevent infection. If you do begin to notice redness or swelling spreading progressively away from the wound, or if the wound begins to drain or look "mushy" you should have it rechecked. We have applied bacitracin this evening, which is an antibiotic ointment. You may continue to apply antibiotic ointment at home, such as Neosporin, until the wound forms a solid scab and dries up. Forms: PCP List Discharge Date/Time: 07/06/23 19:25
== END 2023-07-06 19:25 | disposition home or self-care (01) ==
LOC: ED 17:14
DX: S61.411A Laceration without foreign body of right hand, initial encounter (principal); W26.0XXA Contact with knife, initial encounter; Y93.G1 Activity, food preparation and clean up
CPT/HCPCS: 12002; 99282